=== PATIENT | female | born 2000 | race Caucasian/White ===

== ENCOUNTER 2019-09-14 16:08 | Inpatient (IN) | payer OTHER ==
[2019-09-14 17:06] VITALS: BMI 34.6
[2019-09-14 17:46] LABS: BASO % 0.3 % (0-2.0); EOS % 0.3 % (0-4.5); HEMOGLOBIN 11.4 GM/dL (10.7-15.3); LYMPH % 11.9 % (8-40); MCH 29.5 pg (25.7-33.7); MCHC 32.6 g/dl (32.0-36.0); MEAN CELL VOLUME 90.5 fl (80-96); MEAN PLT VOLUME 9.3 fl (7.5-11.1); NEUT % 83.5 % (42.8-82.8); PLATELET COUNT 266 K/MM3 (134-434); RBC 3.87 M/mm3 (3.60-5.2); RDW 14.2 % (11.6-15.6); WHITE BLOOD COUNT 11.9 K/mm3 (4.0-10.0)
[2019-09-14 17:54] LABS: INR 0.9 (0.83-1.09); PROTHROMBIN TIME (PATIENT) 10.6 SEC (9.7-13.0)
[2019-09-14 17:56] LABS: ACTIVATED PTT 25.8 SECONDS (25.2-36.5)
[2019-09-14 18:08] LABS: BLOOD UREA NITROGEN 6.8 mg/dL (7-18); CALCIUM 9.1 mg/dL (8.5-10.1); CREATININE 0.8 mg/dL (0.55-1.3); POTASSIUM 3.6 mmol/L (3.5-5.1)
[2019-09-14] MEDS ORDERED: BUTORPHANOL TARTRATE 1 MG/ML VIAL ONE ×2 (20:45)
[2019-09-14] MEDS ORDERED: PROMETHAZINE HCL 25 MG/1 ML VIAL ONE (20:45)
[2019-09-14] MEDS ORDERED: BUTORPHANOL TARTRATE 1 MG/ML VIAL IVPB ONE (21:00)
[2019-09-14] MEDS ORDERED: PROMETHAZINE HCL 25 MG/1 ML VIAL IVPB ONE (21:00)
[2019-09-14] MEDS ORDERED: OXYTOCIN 30 UNITS in 0.9% NS 30 UNIT/500 ML INFUS.BAG IVPB ONE (22:28)
[2019-09-14] MEDS: OXYTOCIN 30 UNITS in 0.9% NS 30 UNIT/500 ML INFUS.BAG IVPB SCH (22:30)
--- NOTE | 2019-09-14 22:39 | HP ---
Past Medical History - Primary Care Physician PCP:: Slade Alberto - Admission Chief Complaint: Lower abdominal pain History of Present Illness: 19 yo , NAVI 09/18/19, EGA 39 weeks 3 days, presented with lower abdominal pain, No bleeding or leaking fluid per vagina, [facility] [place] History Source: Patient Limitations to Obtaining History: No Limitations - Past Medical History ...: 1 ...Para: 0 ...Term: 0 ...: 0 ...Spon : 0 ...Induced : 0 ...Living Children: 0 ...Multiple Gestation: 0 ...LMP: 12/12/18 ... Weeks Gestation by Dates: 39.3 ...EDC by Dates: 09/18/19 ...EDC by Sono: 09/15/19 - Past Surgical History Past Surgical History: Yes: None Hx Myomectomy: No Hx Transabdominal Cerclage: No - Smoking History Smoking history: Never smoked Have you smoked in the past 12 months: No - Alcohol/Substance Use Hx Alcohol Use: No - Social History Usual Living Arrangement: Yes: With Significant Other Do you think of yourself as: Straight/Heterosexual History of Recent Travel: No Home Medications - Allergies Allergies/Adverse Reactions: Allergies Allergy/AdvReac Type Severity Reaction Status Date / Time No Known Allergies Allergy Verified 09/14/19 16:44 - Home Medications Home Medications: Ambulatory Orders Vitamins (Sjr) - 1 tab PO DAILY 09/13/19 Family Medical History Family History: Denies Review of Systems - Review of Systems Constitutional: reports: No Symptoms Eyes: reports: No Symptoms HENT: reports: No Symptoms Neck: reports: No Symptoms Cardiovascular: reports: No Symptoms Respiratory: reports: No Symptoms Gastrointestinal: reports: No Symptoms Genitourinary: reports: No Symptoms Breasts: reports: No Symptoms Reported Musculoskeletal: reports: No Symptoms Integumentary: reports: No Symptoms Neurological: reports: No Symptoms Endocrine: reports: No Symptoms Hematology/Lymphatic: reports: No Symptoms Psychiatric: reports: No Symptoms Physical Exam - Maternity Vital Signs: Vital Signs Temperature 98.6 F 09/14/19 22:00 Pulse Rate 86 09/14/19 22:00 Respiratory Rate 20 09/14/19 22:00 Blood Pressure 126/73 09/14/19 22:00 O2 Sat by Pulse Oximetry (%) Constitutional: Yes: Well Nourished Eyes: Yes: WNL HENT: Yes: WNL Neck: Yes: WNL Cardiovascular: Yes: WNL Lungs: Clear to auscultation Breast(s): Yes: WNL - Abdominal Exam/OB Fundal Height: 39 Number of Fetuses: Single Presentation: Vertex Contractions: Yes Regularity: Regular Intensity: Mild/Mod Monitor Mode: External Heart Rate (range): 140 Heart Rate Location: [facility] Category: I Accelerations: Uniform Decelerations: None - Vaginal Exam/OB Vaginal Bleeding: No Speculum Exam: No Dilatation (cm): 3 Effacement (%): 80 Amniotic Membrane Status: Intact Presentation: Vertex/Position Station: -2 - Physical Exam Musculoskeletal: Yes: WNL Extremities: Yes: WNL Edema: No Integumentary: Yes: WNL Deep Tendon Reflex Grade: Normal +2 ...Motor Strength: WNL Psychiatric: Yes: WNL - Labs Lab Results: CBC, BMP 09/14/19 17:30 09/14/19 17:30 Hemorrhage Risk Assessment - Risk Factors Medium Risk Factors: Yes: None High Risk Factors: Yes: None Risk Score: 1 Risk Level: Medium Risk Problem List - Problems (1) 39 weeks gestation of Code(s): Z3A.39 - 39 WEEKS GESTATION OF Assessment/Plan Full term gestation in labor Admit L and D for management Anticipate vaginal delivery
[2019-09-14] MEDS ORDERED: DEXTROSE 5%-LACTATED RINGERS 1,000 ML IV SCH (22:45)
[2019-09-14] MEDS ORDERED: LACTATED RINGERS SOLUTION 1,000 ML/1,000 ML INFUS.BAG IV SCH (22:45)
--- NOTE | 2019-09-14 23:02 | PN ---
Progress Note (short form) - Note Progress Note: Full term gestation in labor VSS, afebrile EFM - Baseline 140/min, moderate variability, accelerations, no decelerations Tocos - q4 Pelvic - 5cm/100%/0/vertex. AROM performed, clear fluid. Plan - Analgesia administered Oxytocin for augmentation Anticipate vaginal delivery Problem List - Problems (1) 39 weeks gestation of Code(s): Z3A.39 - 39 WEEKS GESTATION OF
--- NOTE | 2019-09-15 01:17 | PN ---
Progress Note (short form) - Note Progress Note: Full term gestation in labor VSS, afebrile EFM - Baseline 140/min, moderate variability, accelerations, no decelerations Tocos q3 Pelvic - 9cm/100%/0 Plan - Full term gestation approaching second stage labor Anticipate vaginal delivery. Problem List - Problems (1) 39 weeks gestation of Code(s): Z3A.39 - 39 WEEKS GESTATION OF
[2019-09-15] MEDS ORDERED: LIDOCAINE HCL 1% PRESERVATIVE FREE - 30ML VIAL ONE (01:22)
[2019-09-15] MEDS ORDERED: OXYTOCIN 20 UNITS in 0.9% NS 20 UNIT/1,000 ML INFUS.BAG IV ONE ×2 (01:22→01:45)
[2019-09-15] MEDS ORDERED: WITCH HAZEL 50% (TUCKS) 40 PAD/JAR PAD TP PRN (02:35)
[2019-09-15] MEDS ORDERED: BENZOCAINE 28 GM HEMORRHOIDAL OINTMENT TP PRN (02:35)
[2019-09-15] MEDS ORDERED: BENZOCAINE 20% 57 GM BOTTLE TP PRN (02:35)
[2019-09-15] MEDS ORDERED: METHYLERGONOVINE MALEATE 0.2 MG/1 ML AMP IM PRN (02:35)
--- NOTE | 2019-09-15 02:35 | PN ---
Delivery - Delivery Vaginal Delivery: No Problems, Spontaneous Type of Anesthesia: Local Episiotomy/Laceration: Right Mediolateral, Perineal Extension/lac, 2nd degree EBL (cc): 350 Delivery, Single - Stages of Labor Date of Delivery: 09/15/19 Date Placenta Delivered: 09/15/19 Placenta: Yes: Spontaneous - Condition of Infant Gender: Male Position: Left, OA - 1 Minute Total Score: 9 5 Minutes Total Score: 9 - [place] Feeding Plan Initial Plan: Exclusive throughout hospitalization Benefits of Exclusively reinforced: Yes
[2019-09-15] MEDS ORDERED: ceFAZolin 2 GRAM PREMIX BAG IVPB ONE (02:45)
[2019-09-15] MEDS ORDERED: OXYTOCIN 20 UNITS in 0.9% NS 20 UNIT/1,000 ML INFUS.BAG IV SCH (02:45)
[2019-09-15 03:36] LABS: CORD HCO3 22.4 mmHg (20-29); CORD PCO2 54.9 mmHg (30-78); CORD pH 7.229 (7.14-7.44)
[2019-09-15] MEDS ORDERED: CEFAZOLIN 2 GM/D5W 2 GM/50 ML ML IVPB ONE (04:19)
[2019-09-15] MEDS: ACETAMINOPHEN 325 MG TABLET (FP) PO PRN ×2 (05:35→20:37)
[2019-09-15] MEDS: IBUPROFEN 600 MG TABLET (FP) PO PRN ×2 (05:35→20:38)
[2019-09-15] MEDS: FERROUS SO4 325 MG TABLET (FP) PO SCH ×3 (09:04→17:03)
[2019-09-15] MEDS: DOCUSATE SODIUM 100 MG CAPSULE (FP) PO SCH ×3 (09:04→23:31)
[2019-09-15] MEDS: PRENATAL VITAMINS W/ FOLIC ACID TABLET (FP) PO SCH (09:06)
[2019-09-16] MEDS: OXYTOCIN 30 UNITS in 0.9% NS 30 UNIT/500 ML INFUS.BAG IVPB SCH (00:34)
[2019-09-16 08:29] LABS: BASO % 0.2 % (0-2.0); EOS % 1.1 % (0-4.5); HEMATOCRIT 26.5 % (32.4-45.2); HEMOGLOBIN 8.5 GM/dL (10.7-15.3); LYMPH % 27.9 % (8-40); MCH 29.4 pg (25.7-33.7); MEAN CELL VOLUME 91.8 fl (80-96); MEAN PLT VOLUME 9.4 fl (7.5-11.1); MONO % 4.2 % (3.8-10.2); NEUT % 66.6 % (42.8-82.8); PLATELET COUNT 201 K/MM3 (134-434); RBC 2.89 M/mm3 (3.60-5.2); RDW 14.1 % (11.6-15.6); WHITE BLOOD COUNT 11.4 K/mm3 (4.0-10.0)
[2019-09-16] MEDS: ACETAMINOPHEN 325 MG TABLET (FP) PO PRN (08:46)
[2019-09-16] MEDS: FERROUS SO4 325 MG TABLET (FP) PO SCH ×3 (08:46→17:50)
[2019-09-16] MEDS: IBUPROFEN 600 MG TABLET (FP) PO PRN (08:46)
--- NOTE | 2019-09-16 09:38 | DS ---
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 Vital Signs: Vital Signs Temperature 98.7 F 09/16/19 02:00 Pulse Rate 76 09/16/19 02:00 Respiratory Rate 18 09/16/19 02:00 Blood Pressure 108/48 L 09/16/19 02:00 O2 Sat by Pulse Oximetry (%) 100 09/15/19 04:00 Labs: CBC, BMP 09/16/19 07:38 09/14/19 17:30 Delivery - Delivery Vaginal Delivery: No Problems, Spontaneous Type of Anesthesia: Local Episiotomy/Laceration: Right Mediolateral, Perineal Extension/lac, 2nd degree EBL (cc): 350 Delivery, Single - Stages of Labor Date 1st Stage Initiatied: 09/14/19 Time 1st Stage Initiated: 15:00 Date 2nd Stage Initiated: 09/15/19 Time 2nd Stage Initiated: 01:20 Date of Delivery: 09/15/19 Time of Delivery: 01:42 Time Placenta Delivered: 01:45 Placenta: Yes: Spontaneous - Condition of Commercial Litigation Associate/Dice Table Operator Present: No Gender: Male Weight: 2.807 kg Position: Left, OA Total Hours ROM (Hrs/Mins): 3hrs.38mins. - 1 Minute Total Score: 9 5 Minutes Total Score: 9 - [place] Feeding Plan Initial Plan: Exclusive throughout hospitalization Benefits of Exclusively reinforced: Yes Remarks - Remarks Remarks: pt. without complaints vss - af abd: soft, nt ,nd. fundus firm ve: intact, min lochia exT: no calf tenderness b/l a/p ppd 2 oding well plan for discharge to home today Discharge Summary Problems reviewed: Yes Reason For Visit: LABOR Current Active Problems 39 weeks gestation of (Acute) Procedures: Principal: Hospital Course: admitted in labor underwent uncomplicated PP course uneventful Condition: Good - Instructions Diet, Activity, Other Instructions: regular diet, activity as tolerated, but avoid strenuous activity, heavy lifting and intercourse. pericare Disposition: HOME - Home Medications Comprehensive Discharge Medication List: Ambulatory Orders Vitamins (Sjr) - 1 tab PO DAILY 09/13/19
[2019-09-16] MEDS: PRENATAL VITAMINS W/ FOLIC ACID TABLET (FP) PO SCH (09:44)
[2019-09-16] MEDS: DOCUSATE SODIUM 100 MG CAPSULE (FP) PO SCH ×2 (09:44→21:40)
--- NOTE | 2019-09-16 09:44 | PN ---
Progress Note (short form) - Note Progress Note: pt. without complaints vss - af abd: fundus firm. nontender ve: min lochi, intact ext: no calf tenderness a/p ppd 1 s/p pt. doing well. not being discharged today (bili) pt. states prefers if she can be d/c'ed tomorrow
[2019-09-16] MEDS ORDERED: SENNOSIDES/DOCUSATE COMBO (SENNA PLUS) TABLET (UD) PO PRN (22:00)
[2019-09-16 23:21] VITALS: TEMP 98
[2019-09-17] MEDS: FERROUS SO4 325 MG TABLET (FP) PO SCH ×2 (08:45→13:06)
[2019-09-17 09:33] VITALS: BP 107/65; PULSE 86
[2019-09-17] MEDS: IBUPROFEN 600 MG TABLET (FP) PO PRN (09:53)
[2019-09-17] MEDS: ACETAMINOPHEN 325 MG TABLET (FP) PO PRN (09:53)
[2019-09-17] MEDS: DOCUSATE SODIUM 100 MG CAPSULE (FP) PO SCH (09:55)
[2019-09-17] MEDS: PRENATAL VITAMINS W/ FOLIC ACID TABLET (FP) PO SCH (09:55)
--- NOTE | 2019-09-17 11:42 | DS ---
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 Signs: Vital Signs Temperature 98 F 09/17/19 09:32 Pulse Rate 86 09/17/19 09:32 Respiratory Rate 19 09/17/19 09:32 Blood Pressure 107/65 09/17/19 09:32 O2 Sat by Pulse Oximetry (%) 100 09/15/19 04:00 Labs: CBC, BMP 09/16/19 07:38 09/14/19 17:30 Delivery - Delivery Vaginal Delivery: No Problems, Spontaneous Type of Anesthesia: Local Episiotomy/Laceration: Right Mediolateral, Perineal Extension/lac, 2nd degree EBL (cc): 350 Delivery, Single - Stages of Labor Date 1st Stage Initiatied: 09/14/19 Time 1st Stage Initiated: 15:00 Date 2nd Stage Initiated: 09/15/19 Time 2nd Stage Initiated: 01:20 Date of Delivery: 09/15/19 Time of Delivery: 01:42 Time Placenta Delivered: 01:45 Placenta: Yes: Spontaneous - Condition of Infant Account Development Specialist/Braider Setter Present: No Gender: Male Weight: 2.807 kg Position: Left, OA Total Hours ROM (Hrs/Mins): 3hrs.38mins. - 1 Minute Total Score: 9 5 Minutes Total Score: 9 - [place] Feeding Plan Initial Plan: Exclusive throughout hospitalization Benefits of Exclusively reinforced: Yes Discharge Summary Problems reviewed: Yes Reason For Visit: LABOR Current Active Problems 39 weeks gestation of (Acute) Hospital Course: admitted in labor underwent uncomplicated PP course uneventful Condition: Good - Instructions Diet, Activity, Other Instructions: regular diet, activity as tolerated, but avoid strenuous activity, heavy lifting and intercourse. pericare Iron supplement twice/day Disposition: HOME - Home Medications Comprehensive Discharge Medication List: Ambulatory Orders Vitamins (Sjr) - 1 tab PO DAILY 09/13/19
== END 2019-09-17 16:22 | disposition home or self-care (01) | DRG 560 ==
LOC: EDBD 16:08 → JLDR 16:08 → J3W 09-15 04:36
PROVIDERS: ADMIT Obstetrics & Gynecology; ATTEND Obstetrics & Gynecology
PROC: 10E0XZZ Delivery of Products of Conception, External Approach (ICD-10-PCS; principal; 2019-09-15)
PROC: 0KQM0ZZ Repair Perineum Muscle, Open Approach (ICD-10-PCS; 2019-09-15)
PROC: 0W8NXZZ Division of Female Perineum, External Approach (ICD-10-PCS; 2019-09-15)
DX: O70.1 Second degree perineal laceration during delivery (principal); Z3A.39 39 weeks gestation of pregnancy; Z37.0 Single live birth
CPT/HCPCS: 36415; 36600; 59409; 80048; 82803; 85025; 85610; 85730; 86780; 86850; 86900; 86901; U0003